=== PATIENT | female | born 1990 | race Caucasian/White ===

== ENCOUNTER 2020-04-10 09:53 | Inpatient (IN) | payer OTHER ==
[2020-04-10] MEDS: LACTATED RINGERS 1,000 ML IV SCH ×2 (10:45→20:27)
[2020-04-10] MEDS ORDERED: METHYLERGONOVINE 0.2 MG/ML 1 ML AMP IM PRN (10:58)
[2020-04-10] MEDS ORDERED: OXYTOCIN 10 UNIT/ML 1 ML VIAL IM PRN (10:58)
[2020-04-10] MEDS ORDERED: TERBUTALINE 1 MG/ML VIAL SQ PRN (10:58)
[2020-04-10] MEDS ORDERED: CARBOPROST TROMETHAMINE 250 MCG/ML 1 ML AMP IM PRN (10:58)
[2020-04-10] MEDS ORDERED: LIDOCAINE 0.5% (PF) 5 MG/ML (50 ML SDV) SQ PRN (10:58)
[2020-04-10] MEDS ORDERED: OXYTOCIN 30 UNITS/500 ML NS 30 UNIT in SALINE 1 500ML.BAG IV SCH (11:00)
[2020-04-10 11:11] LABS: Basophils # (A) 0.1 k/uL (0-0.2); Basophils % (A) 0 %; Eosinophils # (A) 0.3 k/uL (0-0.7); Eosinophils % (A) 3 %; HCT 40.1 % (34.0-46.0); HGB 13.3 gm/dL (11.4-16.0); Lymphocytes # (A) 1.8 k/uL (1.0-4.8); Lymphocytes % (A) 15 %; MCH 30.2 pg (25.0-35.0); MCHC 33.1 g/dL (31.0-37.0); MCV 91.3 fL (80.0-100.0); Mean Platelet Volume 7.5; Monocytes # (A) 0.6 k/uL (0-1.0); Monocytes % (A) 5 %; Neutrophils # (A) 9.5 k/uL (1.3-7.7); Neutrophils % (A) 76 %; Platelet Count 262 k/uL (150-450); RDW 13.9 % (11.5-15.5); WBC 12.5 k/uL (3.8-10.6)
[2020-04-10] MEDS ORDERED: BUTORPHANOL 1 MG/ML 1 ML VIAL IV PRN (12:02)
--- NOTE | 2020-04-10 12:33 | P.HPOB ---
History of Present Illness H&P Date: 04/10/20 This is a 29-year-old white female 1 para 0 EDC 04/22/2020 at 38-2/7 weeks' gestation. Patient presented to labor and delivery with strong regular uterine contractions and bloody show. Fetus is been active throughout the . Past medical history is significant for anxiety and depression, as well as previous opioid dependency. Past surgical history is negative. Current medications Subutex 8 mg 3 times a day, promethazine 25 mg rectal suppository twice a day, vitamin daily. ALLERGIES include seasonal ALLERGIES and Toradol, reaction unknown. Social history patient is a massage therapist, she is single, her mother is involved with the , she denies alcohol or drug use or tobacco use at this time. She is a recovering opioid addict, clean since 2018. Family history significant for osteoporosis and COPD. history blood type is B+, rubella status immune. Pap smear reveals low-grade NUSRAT, colposcopy performed. Gonorrhea and chlamydia cultures, VDRL testing, urine culture, group B strep cultures all negative. One-hour Glucola 106. Urine drug screen positive for cannabinoids. On exam patient is 5 foot 3 inches, 255 pounds, blood pressure on admission 159/79. The general physical exam is consistent with multiple tattoos of the skin, body piercings. Chest is clear. Extremities reveal no edema. Cervix is now completely dilated, 90% effaced, -2 to -1 station. Clear fluid noted. heart tones in the 130s with excellent overall variability on internal scalp lead. Type I decelerations are noted. Impression: 38-2/7 weeks intrauterine , active spontaneous labor. Plan: Continue close maternal and surveillance. Anticipate normal spontaneous vaginal delivery. Review of Systems Constitutional: Reports as per HPI Past Medical History Past Psychological History: Anxiety, Depression Additional Drug Use History / Comment(s): Previous opioid addiction, clean since 2017. Medications and Allergies Allergies Allergy/AdvReac Type Severity Reaction Status Date / Time No Known Allergies Allergy Verified 04/10/20 10:58 Exam Intake and Output 04/09/20 04/10/20 04/10/20 22:59 06:59 14:59 Other: Weight 115.666 kg See dictation under HPI please Results Result Diagrams: 04/10/20 10:40 Abnormal Lab Results - Last 24 Hours (Table) 04/10/20 Range/Units 10:40 WBC 12.5 H (3.8-10.6) k/uL Neutrophils # 9.5 H (1.3-7.7) k/uL Assessment and Plan Assessment: 38-2/7 weeks intrauterine , active spontaneous labor. Plan: Continue close maternal and surveillance. Anticipate normal spontaneous vaginal delivery. Time with Patient: Less than 30
[2020-04-10] MEDS ORDERED: KETOROLAC 15 MG/ML 1 ML VIAL ONE (12:50)
[2020-04-10] MEDS ORDERED: MORPHINE SULFATE (PF) 0.3 MG/0.3 ML SYR ONE (12:50)
[2020-04-10] MEDS ORDERED: ONDANSETRON 4 MG/2 ML VIAL ONE (12:50)
[2020-04-10] MEDS ORDERED: NALBUPHINE 10 MG/ML (1 ML AMP) ONE (12:50)
[2020-04-10] MEDS ORDERED: ePHEDrine SULFATE/0.9% NACL/PF 50 MG/5 ML SYRINGE IV ONE (12:50)
[2020-04-10] MEDS ORDERED: OXYTOCIN 10 UNIT/ML 1 ML VIAL ONE (12:50)
[2020-04-10] MEDS ORDERED: diphenhydrAMINE 25 MG CAP PO PRN (13:50)
[2020-04-10] MEDS ORDERED: ZOLPIDEM 5 MG TAB PO PRN (13:50)
[2020-04-10] MEDS ORDERED: ACETAMINOPHEN TAB 325 MG TAB PO PRN (13:50)
[2020-04-10] MEDS ORDERED: diphenhydrAMINE 50 MG/ML 1 ML VIAL IVP PRN ×2 (13:50)
[2020-04-10] MEDS ORDERED: diphenhydrAMINE 50 MG CAP PO PRN (13:50)
[2020-04-10] MEDS ORDERED: METOCLOPRAMIDE 5 MG/ML 2 ML VIAL IVP PRN (13:50)
[2020-04-10] MEDS ORDERED: SIMETHICONE 80 MG CHEWABLE PO PRN (13:50)
[2020-04-10] MEDS ORDERED: NALOXONE 0.4 MG/ML 1 ML VIAL IV PRN (13:50)
--- NOTE | 2020-04-10 13:50 | P.OP ---
Date of Procedure: 04/10/20 Preoperative Diagnosis: 38-2/7 weeks intrauterine , nonreassuring heart tones in the second stage of labor. Postoperative Diagnosis: Same, liveborn male infant, left occiput transverse position Procedure(s) Performed: Primary low transverse section Anesthesia: spinal Surgeon: Nithya García Technical Administrative Assistant #1: Dayanna Garcia Estimated Blood Loss (ml): 500 IV fluids (ml): 800 Urine output (ml): 50 Pathology: none sent Condition: stable Disposition: PACU Description of Procedure: This is a 29-year-old white female 1 para 0 EDC 04/22/2020 at 38-2/7 weeks' gestation. Patient presented in active spontaneous labor from home. remarkable for rubella status immune, blood type B positive, group B strep cultures negative. Please see dictated history and physical for details. Patient became completely dilated and began the second stage of labor at that time. With pushing in the second stage, persistent late decelerations were noted. Because there was no descent in the second stage, and nonreassuring heart tones, the decision was made to proceed with primary low transverse section. This is explained to the patient in detail. Antibiotics were given. She was brought to the operating room where a spinal with Duramorph was placed. She is positioned in the dorsal supine position with left lateral uterine displacement. Analgesia was checked and noted to be adequate. A low transverse skin incision was made in this is carried down through the subcutaneous tissue to the fascia which was approximately 8 cm deep. Fascia is isolated, scored, extended bilaterally with curved Santo scissors. Peritoneum is next identified and incised, there is no bowel or bladder involvement. The disposable large ring retractor is placed into the abdomen for very good visualization. A low transverse uterine incision is made. This is extended with blunt dissection. Infant's head is delivered in the left occiput transverse position. The oropharynx, nasopharynx, and external nares were all bulb suction. Patient was officially delivered of a liveborn male at 1313 hrs. Umbilical cord was doubly clamped and ligated he was handed to waiting retail service lead merchandiser for evaluation where scores of 8 and 9 at one and 5 minutes respectively were given. Infant weighed 6 lbs. 10 oz. or 3010 g. Placenta was delivered manually, it was inspected and noted to be intact with trivascular cord at 1313 hrs. Uterus is swept clean with a sterile sponge to avoid any retained products of conception. Uterus is closed in a two-step fashion. First layer is running locking with 0 Vicryl, second layer imbricated with 0 Vicryl. Ovaries and tubes appear normal to inspection. The abdomen is suctioned with suction on guard posterior to the uterus. Uterus is placed back gently into the abdominal cavity and bilateral gutters are inspected and cleaned. Peritoneum is allowed close by secondary intention. Fascia is closed in a running fashion with 0 Vicryl with over ligation in the midline. Subcutaneous tissue is irrigated and inspected and noted to be clean and dry. It is reapproximated with 3-0 Vicryl in a running fashion. 4-0 undyed Monocryl issues for final skin closure. Steri-Strips and Mastisol are applied to the wound. Pressure dressing is applied. Abdominal binder is ordered. Patient is requesting circumcision for her infant son. Estimated blood loss 500 mL fluid replacement 800 mL's. Stone is noted to be draining clear urine.
[2020-04-10] MEDS ORDERED: LACTATED RINGERS 1,000 ML IV SCH (14:00)
[2020-04-10] MEDS: BUPRENORPHINE 8 MG SUBLINGUAL SCH (18:10)
[2020-04-10] MEDS: KETOROLAC 15 MG/ML 1 ML VIAL IVP PRN (19:33)
[2020-04-10] MEDS: SENNOSIDES-DOCUSATE SODIUM 1 EACH TAB PO SCH (19:37)
[2020-04-11] MEDS: LACTATED RINGERS 1,000 ML IV SCH (00:43)
[2020-04-11] MEDS: KETOROLAC 15 MG/ML 1 ML VIAL IVP PRN ×2 (01:18→08:16)
[2020-04-11] MEDS: BUPRENORPHINE 8 MG SUBLINGUAL SCH ×4 (03:18→23:57)
--- NOTE | 2020-04-11 06:46 | P.PN ---
Progress Note - Text Date: 04/11/2020 Time: 6:41 The patient is status post section Vital signs stable VAS: 0-10 Patient has no complaints of pain. The patient incurred some minimal itching yesterday, this itching is now subsiding. Pain meds to be managed by service.
[2020-04-11 07:25] LABS: Basophils % (A) 0 %; Eosinophils # (A) 0.1 k/uL (0-0.7); Eosinophils % (A) 1 %; Lymphocytes # (A) 1.4 k/uL (1.0-4.8); Lymphocytes % (A) 17 %; MCH 30.2 pg (25.0-35.0); MCHC 33.5 g/dL (31.0-37.0); MCV 90.2 fL (80.0-100.0); Mean Platelet Volume 7.1; Monocytes # (A) 0.5 k/uL (0-1.0); Monocytes % (A) 6 %; Neutrophils # (A) 6.4 k/uL (1.3-7.7); Neutrophils % (A) 75 %; Platelet Count 205 k/uL (150-450); RDW 14.4 % (11.5-15.5); WBC 8.5 k/uL (3.8-10.6)
[2020-04-11 07:35] LABS: HGB 9.4 gm/dL (11.4-16.0)
--- NOTE | 2020-04-11 07:52 | P.PN ---
Subjective Progress Note Date: 04/11/20 Principal diagnosis: Postoperative day #1 Slept well. Positive flatus. Voiding and ambulating well. Objective - Vital Signs Vital signs: Vital Signs Temp 98.2 F 04/11/20 04:00 Pulse 94 04/11/20 04:00 Resp 16 04/11/20 04:00 BP 132/78 04/11/20 04:00 Pulse Ox 99 04/11/20 04:00 Intake & Output 04/10/20 04/11/20 04/11/20 18:59 06:59 18:59 Intake Total 100 Output Total 100 2200 Balance -100 -2100 Weight 115.666 kg Intake: Oral 100 Output: Urine 100 2200 Uretheral (Stone) 400 Other: # Voids 1 - Constitutional General appearance: Present: cooperative - EENT Eyes: Present: PERRLA ENT: Present: hearing grossly normal - Neck Neck: Present: normal ROM - Respiratory Respiratory: bilateral: CTA - Cardiovascular Rhythm: regular - Gastrointestinal General gastrointestinal: Present: normal bowel sounds - Integumentary Integumentary: Present: normal - Neurologic Neurologic: Present: CNII-XII intact - Musculoskeletal Musculoskeletal: Present: strength equal bilaterally - Psychiatric Psychiatric: Present: A&O x's 3, appropriate affect, intact judgment & insight - Labs CBC & Chem 7: 04/11/20 06:53 Labs: Abnormal Lab Results - Last 24 Hours (Table) 04/10/20 04/11/20 Range/Units 10:40 06:53 WBC 12.5 H (3.8-10.6) k/uL RBC 3.10 L (3.80-5.40) m/uL Hgb 9.4 L D (11.4-16.0) gm/dL Hct 28.0 L (34.0-46.0) % Neutrophils # 9.5 H (1.3-7.7) k/uL Assessment and Plan Assessment: Doing well postoperative day #1 Plan: Continue postoperative care. Likely discharge home tomorrow. Infant in nursery, we'll proceed with circumcision as appropriate. Time with Patient: Less than 30
[2020-04-11] MEDS: SENNOSIDES-DOCUSATE SODIUM 1 EACH TAB PO SCH ×2 (08:16→20:03)
[2020-04-11] MEDS: ACETAMINOPHEN TAB 500 MG TAB PO PRN ×2 (10:52→18:41)
[2020-04-11] MEDS: IBUPROFEN 600 MG TAB PO PRN (15:13)
[2020-04-12] MEDS: ACETAMINOPHEN TAB 500 MG TAB PO PRN ×3 (00:06→20:57)
[2020-04-12] MEDS: IBUPROFEN 600 MG TAB PO PRN ×2 (07:19→15:12)
--- NOTE | 2020-04-12 08:00 | P.PN ---
Subjective Progress Note Date: 04/12/20 Feeling well, no complaints. Objective - Vital Signs Vital signs: Vital Signs Temp 97.6 F 04/12/20 00:00 Pulse 83 04/12/20 00:00 Resp 16 04/12/20 00:00 BP 135/85 04/12/20 00:00 Pulse Ox 100 04/12/20 00:00 Intake & Output 04/11/20 04/12/20 04/12/20 18:59 06:59 18:59 Other: # Voids 2 1 - EENT Eyes: Present: PERRLA ENT: Present: hearing grossly normal - Neck Thyroid: bilateral: normal size - Respiratory Respiratory: bilateral: CTA - Cardiovascular Rhythm: regular - Gastrointestinal General gastrointestinal: Present: normal bowel sounds - Integumentary Integumentary Comment(s): Incision clean and dry, intact, steri strips applied. - Neurologic Neurologic: Present: CNII-XII intact - Musculoskeletal Musculoskeletal: Present: gait normal, strength equal bilaterally - Psychiatric Psychiatric: Present: A&O x's 3, appropriate affect, intact judgment & insight - Labs CBC & Chem 7: 04/11/20 06:53 Assessment and Plan Assessment: Doing well post operatively Plan: Continue postoperative care. Likely discharge home tomorrow. Time with Patient: Less than 30
[2020-04-12] MEDS ORDERED: IBUPROFEN 200 MG TAB PO STA (08:11)
[2020-04-12] MEDS: SENNOSIDES-DOCUSATE SODIUM 1 EACH TAB PO SCH ×2 (10:52→21:54)
[2020-04-12] MEDS: BUPRENORPHINE 8 MG SUBLINGUAL SCH ×2 (10:52→15:57)
[2020-04-13] MEDS: IBUPROFEN 600 MG TAB PO PRN ×3 (00:16→20:45)
[2020-04-13] MEDS: BUPRENORPHINE 8 MG SUBLINGUAL SCH ×3 (00:16→17:36)
[2020-04-13] MEDS: ACETAMINOPHEN TAB 500 MG TAB PO PRN ×2 (04:18→23:12)
[2020-04-13] MEDS: SENNOSIDES-DOCUSATE SODIUM 1 EACH TAB PO SCH (08:00)
--- NOTE | 2020-04-13 08:15 | P.PN ---
Subjective Progress Note Date: 04/13/20 Principal diagnosis: Postoperative day #3, pounding migraine headache continues. Objective - Vital Signs Vital signs: Vital Signs Temp 97.3 F L 04/13/20 00:15 Pulse 81 04/13/20 00:15 Resp 16 04/13/20 00:15 BP 145/89 04/13/20 00:15 Pulse Ox 99 04/13/20 00:15 Intake & Output 04/12/20 04/13/20 04/13/20 18:59 06:59 18:59 Intake Total 940 Balance 940 Intake: Oral 940 Other: # Voids 1 1 # Bowel Movements 1 - Constitutional General appearance: Present: average body habitus - EENT Eyes: Present: PERRLA ENT: Present: hearing grossly normal - Neck Neck: Present: normal ROM Thyroid: bilateral: normal size - Respiratory Respiratory: bilateral: CTA - Cardiovascular Rhythm: regular - Gastrointestinal Gastrointestinal Comment(s): Incision clean and dry, intact with Steri-Strips applied. Fundus firm, midline, symmetric and 18 week size. - Neurologic Neurologic: Present: CNII-XII intact - Musculoskeletal Musculoskeletal: Present: gait normal, strength equal bilaterally - Psychiatric Psychiatric: Present: A&O x's 3, appropriate affect, intact judgment & insight - Labs CBC & Chem 7: 04/11/20 06:53 Assessment and Plan Assessment: Postoperative day #3, spinal headache. Otherwise doing well. nursery. Plan: I have discussed with the anesthesia staff the plan for blood patch and they will present to the unit and assessed the patient. Continue postoperative care. Likely discharge home tomorrow. Time with Patient: Less than 30
[2020-04-13] MEDS: ASPIRIN-ACET-CAFF 250-250-65MG 1 EACH TAB PO PRN (13:17)
[2020-04-14 00:33] VITALS: BP 143/86; PULSE 79
[2020-04-14] MEDS: SENNOSIDES-DOCUSATE SODIUM 1 EACH TAB PO SCH ×2 (00:35→07:49)
[2020-04-14] MEDS: BUPRENORPHINE 8 MG SUBLINGUAL SCH ×2 (00:37→09:39)
[2020-04-14] MEDS: ASPIRIN-ACET-CAFF 250-250-65MG 1 EACH TAB PO PRN (07:46)
[2020-04-14 07:57] VITALS: RESP 20; TEMP 98.3
--- NOTE | 2020-04-14 11:24 | P.DS ---
Providers Date of admission: 04/10/20 10:25 Expected date of discharge: 04/14/20 Attending physician: Nithya García Primary care physician: Stated None - Discharge Diagnosis(es) (1) Term Current Visit: Yes Status: Acute (2) Spontaneous onset of labor Current Visit: Yes Status: Acute (3) Non-reassuring heart rate or rhythm affecting management of fetus Current Visit: Yes Status: Acute (4) S/P section Current Visit: Yes Status: Acute (5) Migraine headache Current Visit: Yes Status: Acute Hospital Course: This is a 29-year-old 1 now para 1 woman who is admitted at 38-2/7 weeks' gestation in spontaneous active labor. She had an unremarkable first stage of labor at however in the second stage of labor she had persistent late heart rate decelerations with no rapid descent of the vertex. Decision was made to proceed with primary low transverse section. Findings at the time of surgery were significant for a liveborn male infant with Apgars of 8 at 1 minute and 9 at 5 minutes weighing 6 lbs. 10 oz. Please see the operative report for details. The patient's postoperative course was complicated by persistent migraine headaches. She was evaluated for possible spinal headache and this was felt to be unlikely secondary to the nature of the headache. She has a history of migraine headaches outside of that she typically manages with Excedrin. The was admitted to the special care nursery to be evaluated for opioid withdrawal. Patient has been on Suboxone throughout her . Other than the headache her postoperative course was unremarkable. By postoperative day #1 she was ambulating and voiding without difficulty with a Stone catheter removed. She was tolerating a general diet. On postoperative days 23 and 4 she had minimal lochia. She was using the breast pump successfully. Her pain was well-controlled at her incision with oral pain medications although she did have the headache as discussed above. By postoperative day #4 this decision was made that she was stable for discharge home with routine instructions for care and follow-up. Procedures: Primary low transverse section Patient Condition at Discharge: Good Plan - Discharge Summary Discharge Rx Participant: No Follow up Appointment(s)/Referral(s): Nithya García MD [STAFF PHYSICIAN] - 2 Weeks Activity/Diet/Wound Care/Special Instructions: Follow-up in 2 weeks after surgery in the office. Call the office with any concerning signs or symptoms including fever greater than 101, severe abdominal pain, heavy vaginal bleeding, signs of wound infection, increased swelling or redness of the lower extremities, signs of depression. No driving for 2 weeks after surgery. No heavy lifting or vigorous activity until reevaluated in the office. No intercourse for 6 weeks after delivery. Discharge Disposition: HOME SELF-CARE
== END 2020-04-14 12:30 | disposition home or self-care (01) | DRG 787 ==
LOC: FBPOP 09:53 → 4FBP 10:25 → 6PED 04-12 01:26 → 4FBP 04-12 15:30
PROVIDERS: ADMIT Obstetrics & Gynecology; ATTEND Obstetrics & Gynecology
PROC: 10D00Z1 Extraction of Products of Conception, Low, Open Approach (ICD-10-PCS; principal; 2020-04-10 13:00)
DX: O76 Abnormality in fetal heart rate and rhythm complicating labor and delivery (principal); O99.354 Diseases of the nervous system complicating childbirth; G43.909 Migraine, unspecified, not intractable, without status migrainosus; F11.21 Opioid dependence, in remission; Z37.0 Single live birth; Z3A.38 38 weeks gestation of pregnancy; Z88.5 Allergy status to narcotic agent; Z86.59 Personal history of other mental and behavioral disorders; Z82.5 Family history of asthma and other chronic lower respiratory diseases; Z82.62 Family history of osteoporosis
CPT/HCPCS: 85025; 86850; 86900; 86901